=== PATIENT | male | born 1960 | race Caucasian/White ===

== ENCOUNTER 2020-04-17 18:06 | Inpatient (IN) | payer OTHER ==
[~2020-04-17] VITALS: Ht 188 cm; Wt 108.8 kg
--- NOTE | 2020-04-17 18:41 | NUR ---
TRANSFER FROM [facility] IN [place] FOR NEURO CONSULT. PT REPORTS UNSTEADY GAIT THIS MORNING AT AROUND 0930 AND DOUBLE VISION FROM RIGHT EYE. DENIES FALL OR TRAUMA. PLACED ON CARDIAC AND VITALS MONITORS. CALL LIGHT WITHIN REACH.
[2020-04-17] MEDS ORDERED: ASPIRIN 325 MG TABLET ONE (18:44)
[2020-04-17] MEDS ORDERED: ASPIRIN 81 MG TABLET CHEW ONE (18:47)
[2020-04-17] MEDS ORDERED: ASPIRIN 81 MG TABLET CHEW PO ONE (19:00)
[2020-04-17 21:06] VITALS: BP 122/78
[2020-04-17] MEDS ORDERED: TEMAZEPAM 15 MG CAPSULE PO PRN (23:00)
[2020-04-17] MEDS ORDERED: DOCUSATE 100 MG CAPSULE PO PRN (23:00)
[2020-04-17] MEDS ORDERED: ACETAMINOPHEN 650 MG/20.3 ML UDC PO PRN (23:00)
[2020-04-17] MEDS ORDERED: METO50TA6 PO (23:17)
[2020-04-17] MEDS ORDERED: FLEC50TA25 PO (23:17)
[2020-04-17] MEDS: ATORVASTATIN 80 MG TABLET PO SCH (23:58)
[2020-04-18 00:19] VITALS: BP 114/75
[2020-04-18] MEDS ORDERED: HEPARIN wt. based STROKE protocol MC PRN (00:30)
[2020-04-18 01:18] LABS: BASOPHILS % (AUTO) 1 % (0-1); EOSINOPHILS % (AUTO) 2 % (1-7); LYMPHOCYTES % (AUTO) 31 % (22-44); MEAN CORPUSCULAR HEMOGLOBIN 30.3 pg (27.5-34.5); MEAN CORPUSCULAR HGB CONC 33.3 g/dL (33.2-36.2); MEAN PLATELET VOLUME 8.2 fL (7.4-10.4); MONOCYTES % (AUTO) 9 % (2-9); NEUTROPHILS % (AUTO) 58 % (42-75); PLATELET COUNT 147 x10^3/uL (130-400); RED BLOOD COUNT 4.71 x10^6/uL (4.38-5.82); RED CELL DISTRIBUTION WIDTH 14.1 % (9.4-14.8)
[2020-04-18 01:39] LABS: MD NO
[2020-04-18] MEDS: HEPARIN 25,000 UNITS/250ML PMX 250 ML IV PRN ×2 (02:34→20:16)
[2020-04-18 02:35] VITALS: BP 123/75
[2020-04-18 05:25] VITALS: BP 131/82
[2020-04-18 06:45] VITALS: BP 124/81
[2020-04-18 08:59] LABS: CHOL/HDL RATIO 3.9; LDL/HDL RATIO 2.4 (0.5-3.0)
[2020-04-18] MEDS ORDERED: ASPIRIN 81 MG TABLET CHEW PO/NG SCH (09:00)
[2020-04-18] MEDS: CLOPIDOGREL 75 MG TABLET PO SCH (10:09)
[2020-04-18 12:35] VITALS: BP 127/74
[2020-04-18 20:10] VITALS: BP 109/70
[2020-04-18] MEDS: ATORVASTATIN 80 MG TABLET PO SCH (20:33)
[2020-04-19 01:40] VITALS: BP 115/74
[2020-04-19 05:58] LABS: ALANINE AMINOTRANSFERASE 45 U/L (12-78); ALBUMIN 3.6 g/dL (3.4-5.0); ANION GAP 4 mmol/L (5-15); CALCIUM 8.8 mg/dL (8.5-10.1); CHLORIDE 111 mmol/L (98-107); CREATININE 1.26 mg/dL (0.7-1.3)
[2020-04-19 06:00] LABS: ALKALINE PHOSPHATASE 84 U/L (45-117); BASOPHILS % (AUTO) 1 % (0-1); BILIRUBIN,TOTAL 0.7 mg/dL (0.2-1.0); EOSINOPHILS % (AUTO) 2 % (1-7); LYMPHOCYTES % (AUTO) 31 % (22-44); MEAN CORPUSCULAR HEMOGLOBIN 30.5 pg (27.5-34.5); MEAN PLATELET VOLUME 8.1 fL (7.4-10.4); MONOCYTES % (AUTO) 9 % (2-9); NEUTROPHILS % (AUTO) 58 % (42-75); PLATELET COUNT 134 x10^3/uL (130-400); RED BLOOD COUNT 4.76 x10^6/uL (4.38-5.82); RED CELL DISTRIBUTION WIDTH 14.3 % (9.4-14.8); TOTAL PROTEIN 7.4 g/dL (6.4-8.2)
[2020-04-19 06:16] LABS: MD NO
[2020-04-19] MEDS: CLOPIDOGREL 75 MG TABLET PO SCH (08:06)
[2020-04-19 08:36] VITALS: BP 118/77
[2020-04-19] MEDS ORDERED: METOPROLOL TARTRATE 50 MG TAB PO SCH (11:00)
[2020-04-19] MEDS ORDERED: FLECAINIDE 50MG TABLET PO SCH (11:00)
[2020-04-19 12:13] VITALS: BP 151/91
[2020-04-19 12:18] VITALS: BP 109/68
[2020-04-19] MEDS ORDERED: APIX5TAB PO (12:21)
[2020-04-19] MEDS ORDERED: ATOR40TA78 PO (12:21)
[2020-04-19 12:35] VITALS: BP 156/83
== END 2020-04-19 18:20 | disposition home or self-care (01) | DRG 65 ==
LOC: ED 18:57 → EDIP 19:05 → 5SO 21:45
PROVIDERS: ADMIT Family Medicine; ATTEND Family Medicine
DX: I63.9 Cerebral infarction, unspecified (principal); D68.69 Other thrombophilia; G52.9 Cranial nerve disorder, unspecified; H51.22 Internuclear ophthalmoplegia, left eye; I48.91 Unspecified atrial fibrillation; M10.9 Gout, unspecified; R00.1 Bradycardia, unspecified; H49.00 Third [oculomotor] nerve palsy, unspecified eye; Z95.810 Presence of automatic (implantable) cardiac defibrillator
CPT/HCPCS: 36415; 70450; 80053; 80061; 82962; 85025; 85520; 93005; 93306; G0378; 92523-GN